=== PATIENT | female | born 1965 | race Caucasian/White ===

== ENCOUNTER 2020-04-29 21:32 | Emergency (ER) | payer OTHER ==
[~2020-04-29] VITALS: Ht 154.9 cm; Wt 108.9 kg
[2020-04-30] MEDS ORDERED: ZYNCOF 20-400120 ML PO (02:03)
== END 2020-04-30 02:14 | disposition home or self-care (01) ==
LOC: ER 21:32
DX: U07.1 COVID-19 (principal); J45.998 Other asthma